=== PATIENT | male | born 1950 | race Caucasian/White ===

== ENCOUNTER 2016-07-28 14:28 | Emergency (ER) | payer OTHER ==
--- NOTE | ~2016-07-28 | CR63 ---
[facility] A Service of [facility] & [facility] RADIOLOGY TEXT RESULTS PATIENT: CARLOS SAMUELS LOCATION: [facility] : 50 UNIT #: [id number] AGE: [address]: Taye Reddy MD SEX: M ORDER DR: [id number] [facility] [address] [place], [place] [address] [id number] MR#: [id number] Acc #: [id number] NAME: CARLOS SAMUELS : 1950 SEX: M STUDY DATE/TIME: 07/28/2016 12:51 UNIT: [facility] ROOM: STUDY DESCRIPTION: CR Chest 2 View Attending Physician: Taye Reddy M.D. Ordering Physician: Alcides Lares M.D. Primary Care Physician: No Primary Care Physician MEDICAL IMAGING REPORT This report is preliminary unless electronic signature is present EXAM 2 views chest 07/28/2016 HISTORY Short of air, dizzy, low blood pressure, began last night. COMPARISON 09/26/2014 FINDINGS PA and lateral radiographs of the chest are presented. No acute-appearing bony abnormality. Heart normal in size. Lungs appear somewhat hyperinflated as on prior examination. Correlate with any known chronic airway disease. There is no clear indication of acute pulmonary disease. No pleural effusion or pneumothorax. No suspicious nodule. Dictated by... Ancelmo Cordova M.D. THIS IS AN ELECTRONICALLY VERIFIED REPORT Ancelmo Cordova M.D. at 07/29/2016 6:08 PM [facility]/mercedes TD: 07/28/2016 14:53 JOB #: [id number] MEDICAL IMAGING REPORT Page 1 of 1 COPY
--- NOTE | ~2016-07-28 | EKG ---
PATIENT: CARLOS SAMUELS UNIT #: [id number] Ventricular Rate: 55 BPM Atrial Rate: 55 BPM P-R Interval: 196 ms QRS Duration: 90 ms Q-T Interval: 440 ms QTC Calculation(Bezet): 420 ms P [place]: 51 degrees Calculated R [place]: 22 degrees Calculated T [place]: 38 degrees Diagnosis Line: Sinus bradycardia Diagnosis Line: Nonspecific ST abnormality Diagnosis Line: Otherwise normal ECG Diagnosis Line: No previous ECGs available Diagnosis Line: Confirmed by JULIOCESAR VAZQUEZ MD ([id number]) on 07/30/2016 Diagnosis Line: 9:45:57 AM INTERPRETING MD: TAYLOR GARCIA
[2016-07-28 12:11] LABS: BASOPHIL% 0.2 % (0-2.5); DIFF IND NO; EOSINOPHIL# 0.2 X10e3 (0-0.7); EOSINOPHIL% 1.3 % (0.0-7.0); HEMOGLOBIN 16.8 gm/dL (13.0-16.0); LYMPHOCYTE# 3.2 X10e3 (1.0-3.5); LYMPHOCYTE% 23.6 % (17.0-45.0); MEAN CELL VOLUME 88.2 FL (83-96); MEAN CORPUSCULAR HEMOGLOBIN 29.6 PG (28-34); MEAN CORPUSCULAR HGB CONC 33.6 g/dL (30-36); MEAN PLATELET VOLUME 7.4 FL (6.5-11.5); MONOCYTE# 0.8 X10e3 (0-1.0); MONOCYTE% 6.3 % (3.0-12.0); NEUTROPHIL# 9.2 X10e3 (1.5-7.1); NEUTROPHIL% 68.6 % (40-75); PLATELET COUNT 254 X10e3 (140-420); RED BLOOD COUNT 5.67 X10e (3.90-5.60); RED CELL DISTRIBUTION WIDTH 13.4 % (11.0-15.5); WHITE BLOOD COUNT 13.5 X10e3 (4.0-10.5)
[2016-07-28 12:43] LABS: ALBUMIN SERUM 4.2 g/dL (3.5-5.0); BILIRUBIN, DIRECT 0.1 mg/dL (0.0-0.2); BILIRUBIN,INDIRECT 0.5 mg/dL (0.0-0.9); BILIRUBIN,TOTAL 0.6 mg/dL (0.2-2.0); BUN/CREATININE RATIO 15.83; CALCIUM SERUM 8.9 mg/dL (8.4-10.2); CREATININE SERUM 1.2 mg/dL (0.6-1.4); GLOM FILT RATE Estimated 62.7 mL/min (>60); POTASSIUM 4.1 mmol/L (3.5-5.1); PROTEIN TOTAL SERUM 7.4 g/dL (6.0-8.3)
[2016-07-28 12:52] LABS: POC - CKMB <1.0 ng/mL (0.0-7.9); POC - TROPONIN <0.05 ng/mL (<=0.05)
[2016-07-28 14:03] LABS: POC - CKMB <1.0 ng/mL (0.0-7.9); POC - TROPONIN <0.05 ng/mL (<=0.05)
== END 2016-07-28 14:42 | disposition home or self-care (01) ==
LOC: CED 14:28
PROVIDERS: Emergency Medicine
DX: R06.02 Shortness of breath (principal)
CPT/HCPCS: 36415; 71020; 80048; 80076; 82553; 83880; 84484; 85025; 93005; 99284